=== PATIENT | male | born 1970 | race African-American/Black ===

== ENCOUNTER 2022-10-22 15:52 | Inpatient (IN) | payer OTHER ==
[2022-10-22 16:28] VITALS: BMI 33.6
[2022-10-22] MEDS ORDERED: DICYCLOMINE HCL 10 MG CAPSULE PO PRN (17:34)
[2022-10-22] MEDS ORDERED: IBUPROFEN 600 MG TABLET (FP) PO PRN (17:34)
[2022-10-22] MEDS ORDERED: hydrOXYzine PAMOATE 25 MG CAPSULE (FP) PO PRN (17:34)
[2022-10-22] MEDS ORDERED: ONDANSETRON *ODT* 4 MG TABLET SL PRN (17:34)
[2022-10-22] MEDS ORDERED: BISMUTH SUBSALICYLATE 524 MG/30 ML PO PRN (17:34)
[2022-10-22] MEDS ORDERED: chlordiazePOXIDE HCL 25 MG CAPSULE PO PRN (17:34)
[2022-10-22] MEDS ORDERED: POLYETHYLENE GLYCOL (HEALTHYLAX) 3350 17 GM PACKET PO PRN (17:34)
[2022-10-22] MEDS ORDERED: MAG HYDROX/AL HYDROX/SIMETH 30 ML UNIT-DOSE CUP PO PRN (17:34)
[2022-10-22] MEDS ORDERED: IBUPROFEN 400 MG TABLET (FP) PO PRN (17:34)
[2022-10-22] MEDS ORDERED: LOPERAMIDE HCL 2 MG CAPSULE PO PRN (17:34)
[2022-10-22] MEDS ORDERED: METHOCARBAMOL 500 MG TABLET PO PRN (17:34)
[2022-10-22] MEDS ORDERED: BENZOCAINE/MENTHOL (CHLORASEPTIC ) LOZENGE MM PRN (17:34)
[2022-10-22] MEDS ORDERED: ACETAMINOPHEN 325 MG TABLET (FP) PO PRN ×2 (17:34)
[2022-10-22] MEDS ORDERED: MAGNESIUM HYDROX 2400MG/30ML ORAL SUSPENSION 30 ML CUP PO PRN (17:34)
[2022-10-22] MEDS ORDERED: NICOTINE 10 MG CARTRIDGE (INHALER) IH PRN (17:34)
[2022-10-22] MEDS ORDERED: NICOTINE POLACRILEX 2 MG GUM BUC PRN (17:34)
[2022-10-22] MEDS ORDERED: NALOXONE HCL (KLOXXADO) 8 MG SPRAY NS PRN (17:34)
[2022-10-22] MEDS ORDERED: METHOCARBAMOL 500 MG TABLET ONE (18:11)
[2022-10-22] MEDS: CLOTRIMAZOLE 1% CREAM TP SCH (22:55)
[2022-10-22] MEDS: MELATONIN 5 MG TABLETS PO SCH (22:55)
[2022-10-22] MEDS: THIAMINE HCL 100 MG TABLET (FP) PO SCH (22:55)
[2022-10-22] MEDS: chlordiazePOXIDE HCL 25 MG CAPSULE PO SCH (23:02)
[2022-10-23] MEDS: chlordiazePOXIDE HCL 25 MG CAPSULE PO SCH ×4 (05:35→22:09)
[2022-10-23] MEDS: PRENATAL VITAMINS W/ FOLIC ACID TABLET (FP) PO SCH (10:23)
[2022-10-23] MEDS: CLOTRIMAZOLE 1% CREAM TP SCH ×2 (10:23→22:11)
[2022-10-23] MEDS: THIAMINE HCL 100 MG TABLET (FP) PO SCH (22:09)
[2022-10-23] MEDS: MELATONIN 5 MG TABLETS PO SCH (22:09)
[2022-10-24] MEDS: chlordiazePOXIDE HCL 25 MG CAPSULE PO SCH ×4 (05:32→22:49)
[2022-10-24] MEDS: PRENATAL VITAMINS W/ FOLIC ACID TABLET (FP) PO SCH (10:21)
[2022-10-24] MEDS: CLOTRIMAZOLE 1% CREAM TP SCH ×2 (10:22→22:49)
[2022-10-24 12:43] LABS: HEMATOCRIT 38.4 % (35.4-49); MCH 22.6 pg (25.7-33.7); MCHC 31.2 g/dl (32.0-35.9); MEAN CELL VOLUME 72.5 fl (80-96); MEAN PLT VOLUME 8.6 fl (7.5-11.1); PLATELET COUNT 284 10^3/uL (134-434); RDW 14.8 % (11.9-15.9); WHITE BLOOD COUNT 6.3 K/mm3 (4.0-10.0)
[2022-10-24 12:50] LABS: CREATININE 0.9 mg/dL (0.55-1.3)
[2022-10-24 12:51] LABS: BILIRUBIN,TOTAL 0.2 mg/dL (0.2-1)
[2022-10-24 12:53] LABS: BLOOD UREA NITROGEN 12.3 mg/dL (7-18); CALCIUM 8.4 mg/dL (8.5-10.1)
[2022-10-24] MEDS: traZODone HCL 50 MG TABLET (FP) PO SCH (22:50)
[2022-10-24] MEDS: THIAMINE HCL 100 MG TABLET (FP) PO SCH (22:50)
[2022-10-25] MEDS ORDERED: chlordiazePOXIDE HCL 10 MG CAPSULE PO PRN
[2022-10-25] MEDS: chlordiazePOXIDE HCL 10 MG CAPSULE PO SCH ×4 (05:23→22:38)
[2022-10-25] MEDS ORDERED: HALOPERIDOL 5 MG TABLET PO SCH (10:00)
[2022-10-25] MEDS ORDERED: BENZTROPINE MESYLATE 0.5 MG TABLET (FP) PO SCH (10:00)
[2022-10-25] MEDS: PRENATAL VITAMINS W/ FOLIC ACID TABLET (FP) PO SCH (10:41)
[2022-10-25] MEDS: CLOTRIMAZOLE 1% CREAM TP SCH ×2 (10:41→22:38)
[2022-10-25] MEDS ORDERED: ALBUTEROL SO4 HFA INHALER IH PRN (10:56)
[2022-10-25] MEDS: THIAMINE HCL 100 MG TABLET (FP) PO SCH (22:37)
[2022-10-25] MEDS: traZODone HCL 50 MG TABLET (FP) PO SCH (22:37)
[2022-10-26] MEDS: chlordiazePOXIDE HCL 10 MG CAPSULE PO SCH ×2 (05:43→17:31)
[2022-10-26] MEDS: CLOTRIMAZOLE 1% CREAM TP SCH ×2 (10:27→22:15)
[2022-10-26] MEDS: PRENATAL VITAMINS W/ FOLIC ACID TABLET (FP) PO SCH (10:27)
[2022-10-26] MEDS: THIAMINE HCL 100 MG TABLET (FP) PO SCH (22:15)
[2022-10-26] MEDS: traZODone HCL 50 MG TABLET (FP) PO SCH (22:15)
[2022-10-27] MEDS ORDERED: chlordiazePOXIDE HCL 10 MG CAPSULE PO ONE (05:00)
[2022-10-27 09:31] VITALS: BP 130/85; PULSE 81; RESP 17; TEMP 97.7
[2022-10-27] MEDS: PRENATAL VITAMINS W/ FOLIC ACID TABLET (FP) PO SCH (10:00)
[2022-10-27] MEDS: CLOTRIMAZOLE 1% CREAM TP SCH (10:05)
== END 2022-10-27 10:08 | disposition other institution (70) | DRG 774 ==
LOC: YASAS 15:52 → Y3N 19:37
PROVIDERS: ADMIT Allergy & Immunology; ATTEND Surgery
PROC: HZ2ZZZZ Detoxification Services for Substance Abuse Treatment (ICD-10-PCS; principal; 2022-10-22)
DX: F10.230 Alcohol dependence with withdrawal, uncomplicated (principal); F14.20 Cocaine dependence, uncomplicated; F17.210 Nicotine dependence, cigarettes, uncomplicated; F20.9 Schizophrenia, unspecified; G47.00 Insomnia, unspecified; J45.30 Mild persistent asthma, uncomplicated; B35.1 Tinea unguium; R73.9 Hyperglycemia, unspecified; Z86.19 Personal history of other infectious and parasitic diseases; Z59.00 Homelessness unspecified
CPT/HCPCS: 36415; 80053; 83036; 85027; 86593; 86780; 93005; 93010; C9803-CS; U0003; U0005

== ENCOUNTER 2022-10-27 10:14 | Inpatient (IN) | payer OTHER ==
[2022-10-27] MEDS ORDERED: hydrOXYzine PAMOATE 25 MG CAPSULE (FP) PO PRN (12:26)
[2022-10-27] MEDS ORDERED: P-EPHED 60MG/TRIPROLIDI 2.5MG TABLET PO PRN (12:26)
[2022-10-27] MEDS ORDERED: BENZOCAINE/MENTHOL (CHLORASEPTIC ) LOZENGE MM PRN (12:26)
[2022-10-27] MEDS ORDERED: POLYETHYLENE GLYCOL (HEALTHYLAX) 3350 17 GM PACKET PO PRN (12:26)
[2022-10-27] MEDS ORDERED: NICOTINE 14 MG/24 HOURS TOPICAL PATCH TD PRN (12:26)
[2022-10-27] MEDS ORDERED: ACETAMINOPHEN 325 MG TABLET (FP) PO PRN (12:26)
[2022-10-27] MEDS ORDERED: guaiFENesin 200 MG/10 ML 10 ML UNIT-DOSE CUPS PO PRN (12:26)
[2022-10-27] MEDS ORDERED: LOPERAMIDE HCL 2 MG CAPSULE PO PRN (12:26)
[2022-10-27] MEDS ORDERED: MAG HYDROX/AL HYDROX/SIMETH 30 ML UNIT-DOSE CUP PO PRN (12:26)
[2022-10-27] MEDS ORDERED: MAGNESIUM HYDROX 2400MG/30ML ORAL SUSPENSION 30 ML CUP PO PRN (12:26)
[2022-10-27] MEDS ORDERED: traZODone HCL 50 MG TABLET (FP) PO ONE (12:33)
[2022-10-27] MEDS: THIAMINE HCL 100 MG TABLET (FP) PO SCH (21:24)
[2022-10-27] MEDS: MELATONIN 5 MG TABLETS PO SCH (21:24)
[2022-10-27] MEDS: BENZTROPINE MESYLATE 0.5 MG TABLET (FP) PO SCH (21:25)
[2022-10-27] MEDS: HALOPERIDOL 5 MG TABLET PO SCH (21:26)
[2022-10-27] MEDS: traZODone HCL 50 MG TABLET (FP) PO SCH (21:26)
[2022-10-27] MEDS: CLOTRIMAZOLE 1% CREAM TP SCH (21:27)
[2022-10-28] MEDS: PRENATAL VITAMINS W/ FOLIC ACID TABLET (FP) PO SCH (09:55)
[2022-10-28] MEDS: CLOTRIMAZOLE 1% CREAM TP SCH ×2 (10:24→22:08)
[2022-10-28] MEDS: ALBUTEROL SO4 HFA INHALER IH PRN (12:53)
[2022-10-28] MEDS: LACTULOSE 20 GM/30 ML UDC (FOR ORAL USE ONLY) PO SCH ×2 (14:09→22:07)
[2022-10-28] MEDS: AMOX TR/POT CLAV 875MG/125MG TABLETS (FP) PO SCH (18:24)
[2022-10-28] MEDS: traZODone HCL 50 MG TABLET (FP) PO SCH (22:06)
[2022-10-28] MEDS: HALOPERIDOL 5 MG TABLET PO SCH (22:06)
[2022-10-28] MEDS: THIAMINE HCL 100 MG TABLET (FP) PO SCH (22:06)
[2022-10-28] MEDS: MELATONIN 5 MG TABLETS PO SCH (22:07)
[2022-10-28] MEDS: BENZTROPINE MESYLATE 0.5 MG TABLET (FP) PO SCH (22:07)
[2022-10-29] MEDS: LACTULOSE 20 GM/30 ML UDC (FOR ORAL USE ONLY) PO SCH ×3 (06:44→22:07)
[2022-10-29] MEDS: AMOX TR/POT CLAV 875MG/125MG TABLETS (FP) PO SCH ×2 (07:04→17:20)
[2022-10-29] MEDS: CLOTRIMAZOLE 1% CREAM TP SCH ×2 (09:48→22:07)
[2022-10-29] MEDS: NICOTINE 10 MG CARTRIDGE (INHALER) IH PRN (09:49)
[2022-10-29] MEDS: PRENATAL VITAMINS W/ FOLIC ACID TABLET (FP) PO SCH (09:49)
[2022-10-29] MEDS: MELATONIN 5 MG TABLETS PO SCH (22:06)
[2022-10-29] MEDS: BENZTROPINE MESYLATE 0.5 MG TABLET (FP) PO SCH (22:07)
[2022-10-29] MEDS: traZODone HCL 50 MG TABLET (FP) PO SCH (22:07)
[2022-10-29] MEDS: THIAMINE HCL 100 MG TABLET (FP) PO SCH (22:07)
[2022-10-29] MEDS: HALOPERIDOL 5 MG TABLET PO SCH (22:07)
[2022-10-29] MEDS: ALBUTEROL SO4 HFA INHALER IH PRN (22:09)
[2022-10-30] MEDS: LACTULOSE 20 GM/30 ML UDC (FOR ORAL USE ONLY) PO SCH ×3 (06:28→21:35)
[2022-10-30] MEDS: AMOX TR/POT CLAV 875MG/125MG TABLETS (FP) PO SCH ×2 (07:23→17:00)
[2022-10-30] MEDS: CLOTRIMAZOLE 1% CREAM TP SCH ×2 (10:43→21:35)
[2022-10-30] MEDS: PRENATAL VITAMINS W/ FOLIC ACID TABLET (FP) PO SCH (10:43)
[2022-10-30] MEDS: IBUPROFEN 400 MG TABLET (FP) PO PRN (11:22)
[2022-10-30] MEDS: MELATONIN 5 MG TABLETS PO SCH (21:35)
[2022-10-30] MEDS: HALOPERIDOL 5 MG TABLET PO SCH (21:35)
[2022-10-30] MEDS: THIAMINE HCL 100 MG TABLET (FP) PO SCH (21:35)
[2022-10-30] MEDS: BENZTROPINE MESYLATE 0.5 MG TABLET (FP) PO SCH (21:35)
[2022-10-30] MEDS: traZODone HCL 50 MG TABLET (FP) PO SCH (21:35)
[2022-10-30] MEDS: NICOTINE 10 MG CARTRIDGE (INHALER) IH PRN (21:47)
[2022-10-31] MEDS: LACTULOSE 20 GM/30 ML UDC (FOR ORAL USE ONLY) PO SCH ×3 (06:42→21:14)
[2022-10-31] MEDS: AMOX TR/POT CLAV 875MG/125MG TABLETS (FP) PO SCH ×2 (07:06→17:00)
[2022-10-31] MEDS: PRENATAL VITAMINS W/ FOLIC ACID TABLET (FP) PO SCH ×2 (10:21→10:27)
[2022-10-31] MEDS: CLOTRIMAZOLE 1% CREAM TP SCH ×2 (10:21→21:15)
[2022-10-31] MEDS: THIAMINE HCL 100 MG TABLET (FP) PO SCH (21:14)
[2022-10-31] MEDS: traZODone HCL 50 MG TABLET (FP) PO SCH (21:14)
[2022-10-31] MEDS: MELATONIN 5 MG TABLETS PO SCH (21:14)
[2022-10-31] MEDS: HALOPERIDOL 5 MG TABLET PO SCH (21:14)
[2022-10-31] MEDS: NICOTINE 10 MG CARTRIDGE (INHALER) IH PRN (21:14)
[2022-10-31] MEDS: BENZTROPINE MESYLATE 0.5 MG TABLET (FP) PO SCH (21:14)
[2022-11-01] MEDS: LACTULOSE 20 GM/30 ML UDC (FOR ORAL USE ONLY) PO SCH ×3 (06:36→21:28)
[2022-11-01] MEDS: PRENATAL VITAMINS W/ FOLIC ACID TABLET (FP) PO SCH (10:39)
[2022-11-01] MEDS: AMOX TR/POT CLAV 875MG/125MG TABLETS (FP) PO SCH ×2 (10:39→17:12)
[2022-11-01] MEDS: CLOTRIMAZOLE 1% CREAM TP SCH ×2 (10:39→21:29)
[2022-11-01] MEDS: THIAMINE HCL 100 MG TABLET (FP) PO SCH (21:28)
[2022-11-01] MEDS: traZODone HCL 50 MG TABLET (FP) PO SCH (21:28)
[2022-11-01] MEDS: MELATONIN 5 MG TABLETS PO SCH (21:28)
[2022-11-01] MEDS: BENZTROPINE MESYLATE 0.5 MG TABLET (FP) PO SCH (21:28)
[2022-11-01] MEDS: HALOPERIDOL 5 MG TABLET PO SCH (21:28)
[2022-11-01] MEDS: NICOTINE 10 MG CARTRIDGE (INHALER) IH PRN (22:48)
[2022-11-02] MEDS: LACTULOSE 20 GM/30 ML UDC (FOR ORAL USE ONLY) PO SCH ×3 (06:07→21:13)
[2022-11-02] MEDS: AMOX TR/POT CLAV 875MG/125MG TABLETS (FP) PO SCH ×2 (07:16→16:49)
[2022-11-02] MEDS: PRENATAL VITAMINS W/ FOLIC ACID TABLET (FP) PO SCH (09:53)
[2022-11-02] MEDS: CLOTRIMAZOLE 1% CREAM TP SCH ×2 (09:53→21:14)
[2022-11-02] MEDS: NICOTINE 10 MG CARTRIDGE (INHALER) IH PRN (16:48)
[2022-11-02] MEDS: THIAMINE HCL 100 MG TABLET (FP) PO SCH (21:13)
[2022-11-02] MEDS: MELATONIN 5 MG TABLETS PO SCH (21:13)
[2022-11-02] MEDS: BENZTROPINE MESYLATE 0.5 MG TABLET (FP) PO SCH (21:14)
[2022-11-02] MEDS: traZODone HCL 50 MG TABLET (FP) PO SCH (21:14)
[2022-11-02] MEDS: HALOPERIDOL 5 MG TABLET PO SCH (21:14)
[2022-11-03] MEDS: LACTULOSE 20 GM/30 ML UDC (FOR ORAL USE ONLY) PO SCH ×3 (06:11→21:13)
[2022-11-03 06:53] VITALS: RESP 18
[2022-11-03] MEDS: AMOX TR/POT CLAV 875MG/125MG TABLETS (FP) PO SCH ×2 (07:26→18:11)
[2022-11-03] MEDS: PRENATAL VITAMINS W/ FOLIC ACID TABLET (FP) PO SCH (10:38)
[2022-11-03] MEDS: CLOTRIMAZOLE 1% CREAM TP SCH ×2 (10:38→21:14)
[2022-11-03] MEDS: NICOTINE 10 MG CARTRIDGE (INHALER) IH PRN ×2 (14:04→19:09)
[2022-11-03] MEDS: traZODone HCL 50 MG TABLET (FP) PO SCH (21:13)
[2022-11-03] MEDS: HALOPERIDOL 5 MG TABLET PO SCH (21:13)
[2022-11-03] MEDS: THIAMINE HCL 100 MG TABLET (FP) PO SCH (21:13)
[2022-11-03] MEDS: MELATONIN 5 MG TABLETS PO SCH (21:13)
[2022-11-03] MEDS: BENZTROPINE MESYLATE 1 MG TABLET PO SCH (21:14)
[2022-11-04] MEDS: LACTULOSE 20 GM/30 ML UDC (FOR ORAL USE ONLY) PO SCH ×3 (06:07→21:41)
[2022-11-04] MEDS: CLOTRIMAZOLE 1% CREAM TP SCH ×2 (10:22→21:27)
[2022-11-04] MEDS: PRENATAL VITAMINS W/ FOLIC ACID TABLET (FP) PO SCH (10:23)
[2022-11-04] MEDS: NICOTINE 10 MG CARTRIDGE (INHALER) IH PRN ×2 (12:06→16:23)
[2022-11-04] MEDS: MELATONIN 5 MG TABLETS PO SCH (21:27)
[2022-11-04] MEDS: traZODone HCL 50 MG TABLET (FP) PO SCH (21:27)
[2022-11-04] MEDS: BENZTROPINE MESYLATE 1 MG TABLET PO SCH (21:27)
[2022-11-04] MEDS: HALOPERIDOL 5 MG TABLET PO SCH (21:27)
[2022-11-04] MEDS: THIAMINE HCL 100 MG TABLET (FP) PO SCH (21:27)
[2022-11-05] MEDS: LACTULOSE 20 GM/30 ML UDC (FOR ORAL USE ONLY) PO SCH ×3 (05:46→21:17)
[2022-11-05] MEDS: CLOTRIMAZOLE 1% CREAM TP SCH ×2 (10:06→21:18)
[2022-11-05] MEDS: PRENATAL VITAMINS W/ FOLIC ACID TABLET (FP) PO SCH (10:06)
[2022-11-05] MEDS: NICOTINE 10 MG CARTRIDGE (INHALER) IH PRN ×2 (13:56→21:46)
[2022-11-05] MEDS: THIAMINE HCL 100 MG TABLET (FP) PO SCH (21:17)
[2022-11-05] MEDS: MELATONIN 5 MG TABLETS PO SCH (21:17)
[2022-11-05] MEDS: traZODone HCL 50 MG TABLET (FP) PO SCH (21:17)
[2022-11-05] MEDS: HALOPERIDOL 5 MG TABLET PO SCH (21:17)
[2022-11-05] MEDS: BENZTROPINE MESYLATE 1 MG TABLET PO SCH (21:17)
[2022-11-06] MEDS: LACTULOSE 20 GM/30 ML UDC (FOR ORAL USE ONLY) PO SCH ×3 (06:33→21:32)
[2022-11-06] MEDS: PRENATAL VITAMINS W/ FOLIC ACID TABLET (FP) PO SCH (10:11)
[2022-11-06] MEDS: CLOTRIMAZOLE 1% CREAM TP SCH ×2 (10:11→21:33)
[2022-11-06] MEDS: IBUPROFEN 400 MG TABLET (FP) PO PRN (10:12)
[2022-11-06] MEDS: NICOTINE 10 MG CARTRIDGE (INHALER) IH PRN ×2 (13:54→17:00)
[2022-11-06] MEDS: BENZTROPINE MESYLATE 1 MG TABLET PO SCH (21:32)
[2022-11-06] MEDS: HALOPERIDOL 5 MG TABLET PO SCH (21:32)
[2022-11-06] MEDS: traZODone HCL 50 MG TABLET (FP) PO SCH (21:32)
[2022-11-06] MEDS: MELATONIN 5 MG TABLETS PO SCH (21:32)
[2022-11-06] MEDS: THIAMINE HCL 100 MG TABLET (FP) PO SCH (21:32)
[2022-11-07] MEDS: LACTULOSE 20 GM/30 ML UDC (FOR ORAL USE ONLY) PO SCH ×3 (06:27→21:38)
[2022-11-07] MEDS: IBUPROFEN 400 MG TABLET (FP) PO PRN ×2 (06:27→14:37)
[2022-11-07] MEDS: CLOTRIMAZOLE 1% CREAM TP SCH ×2 (10:44→21:39)
[2022-11-07] MEDS: PRENATAL VITAMINS W/ FOLIC ACID TABLET (FP) PO SCH (10:45)
[2022-11-07] MEDS: HALOPERIDOL 5 MG TABLET PO SCH (21:38)
[2022-11-07] MEDS: MELATONIN 5 MG TABLETS PO SCH (21:38)
[2022-11-07] MEDS: traZODone HCL 50 MG TABLET (FP) PO SCH (21:38)
[2022-11-07] MEDS: BENZTROPINE MESYLATE 1 MG TABLET PO SCH (21:38)
[2022-11-07] MEDS: THIAMINE HCL 100 MG TABLET (FP) PO SCH (21:38)
[2022-11-07] MEDS: NICOTINE 10 MG CARTRIDGE (INHALER) IH PRN (22:06)
[2022-11-08] MEDS: IBUPROFEN 400 MG TABLET (FP) PO PRN (06:08)
[2022-11-08] MEDS: LACTULOSE 20 GM/30 ML UDC (FOR ORAL USE ONLY) PO SCH ×3 (06:08→21:16)
[2022-11-08] MEDS: CLOTRIMAZOLE 1% CREAM TP SCH ×2 (10:52→21:17)
[2022-11-08] MEDS: PRENATAL VITAMINS W/ FOLIC ACID TABLET (FP) PO SCH (10:53)
[2022-11-08] MEDS: NICOTINE 10 MG CARTRIDGE (INHALER) IH PRN (18:29)
[2022-11-08] MEDS: MELATONIN 5 MG TABLETS PO SCH (21:16)
[2022-11-08] MEDS: THIAMINE HCL 100 MG TABLET (FP) PO SCH (21:16)
[2022-11-08] MEDS: HALOPERIDOL 5 MG TABLET PO SCH (21:17)
[2022-11-08] MEDS: traZODone HCL 50 MG TABLET (FP) PO SCH (21:17)
[2022-11-08] MEDS: BENZTROPINE MESYLATE 1 MG TABLET PO SCH (21:17)
[2022-11-09] MEDS: LACTULOSE 20 GM/30 ML UDC (FOR ORAL USE ONLY) PO SCH ×3 (06:02→21:29)
[2022-11-09] MEDS: PRENATAL VITAMINS W/ FOLIC ACID TABLET (FP) PO SCH (11:30)
[2022-11-09] MEDS: CLOTRIMAZOLE 1% CREAM TP SCH ×2 (11:30→21:30)
[2022-11-09] MEDS: traZODone HCL 50 MG TABLET (FP) PO SCH (21:29)
[2022-11-09] MEDS: MELATONIN 5 MG TABLETS PO SCH (21:29)
[2022-11-09] MEDS: HALOPERIDOL 5 MG TABLET PO SCH (21:29)
[2022-11-09] MEDS: THIAMINE HCL 100 MG TABLET (FP) PO SCH (21:29)
[2022-11-09] MEDS: BENZTROPINE MESYLATE 1 MG TABLET PO SCH (21:30)
[2022-11-10] MEDS: LACTULOSE 20 GM/30 ML UDC (FOR ORAL USE ONLY) PO SCH ×3 (06:43→21:19)
[2022-11-10] MEDS: PRENATAL VITAMINS W/ FOLIC ACID TABLET (FP) PO SCH (10:48)
[2022-11-10] MEDS: CLOTRIMAZOLE 1% CREAM TP SCH ×2 (10:48→21:20)
[2022-11-10] MEDS: NICOTINE 10 MG CARTRIDGE (INHALER) IH PRN (15:49)
[2022-11-10] MEDS: MELATONIN 5 MG TABLETS PO SCH (21:19)
[2022-11-10] MEDS: traZODone HCL 50 MG TABLET (FP) PO SCH (21:19)
[2022-11-10] MEDS: HALOPERIDOL 5 MG TABLET PO SCH (21:19)
[2022-11-10] MEDS: THIAMINE HCL 100 MG TABLET (FP) PO SCH (21:19)
[2022-11-10] MEDS: BENZTROPINE MESYLATE 1 MG TABLET PO SCH (21:20)
[2022-11-11] MEDS: LACTULOSE 20 GM/30 ML UDC (FOR ORAL USE ONLY) PO SCH ×3 (06:53→21:09)
[2022-11-11] MEDS: IBUPROFEN 400 MG TABLET (FP) PO PRN (06:54)
[2022-11-11] MEDS: CLOTRIMAZOLE 1% CREAM TP SCH ×2 (10:22→21:10)
[2022-11-11] MEDS: PRENATAL VITAMINS W/ FOLIC ACID TABLET (FP) PO SCH (10:22)
[2022-11-11] MEDS: MELATONIN 5 MG TABLETS PO SCH (21:09)
[2022-11-11] MEDS: THIAMINE HCL 100 MG TABLET (FP) PO SCH (21:09)
[2022-11-11] MEDS: traZODone HCL 50 MG TABLET (FP) PO SCH (21:09)
[2022-11-11] MEDS: BENZTROPINE MESYLATE 1 MG TABLET PO SCH (21:09)
[2022-11-11] MEDS: HALOPERIDOL 5 MG TABLET PO SCH (21:09)
[2022-11-11] MEDS: NICOTINE 10 MG CARTRIDGE (INHALER) IH PRN (23:32)
[2022-11-12] MEDS: LACTULOSE 20 GM/30 ML UDC (FOR ORAL USE ONLY) PO SCH ×3 (06:34→21:09)
[2022-11-12] MEDS: IBUPROFEN 400 MG TABLET (FP) PO PRN (06:35)
[2022-11-12] MEDS: CLOTRIMAZOLE 1% CREAM TP SCH ×2 (10:09→21:10)
[2022-11-12] MEDS: PRENATAL VITAMINS W/ FOLIC ACID TABLET (FP) PO SCH (10:09)
[2022-11-12] MEDS: THIAMINE HCL 100 MG TABLET (FP) PO SCH (21:09)
[2022-11-12] MEDS: BENZTROPINE MESYLATE 1 MG TABLET PO SCH (21:09)
[2022-11-12] MEDS: traZODone HCL 50 MG TABLET (FP) PO SCH (21:10)
[2022-11-12] MEDS: MELATONIN 5 MG TABLETS PO SCH (21:10)
[2022-11-12] MEDS: HALOPERIDOL 5 MG TABLET PO SCH (21:10)
[2022-11-12] MEDS: NICOTINE 10 MG CARTRIDGE (INHALER) IH PRN (22:54)
[2022-11-13] MEDS: LACTULOSE 20 GM/30 ML UDC (FOR ORAL USE ONLY) PO SCH ×3 (06:28→21:30)
[2022-11-13] MEDS: PRENATAL VITAMINS W/ FOLIC ACID TABLET (FP) PO SCH (10:14)
[2022-11-13] MEDS: CLOTRIMAZOLE 1% CREAM TP SCH ×2 (10:14→21:31)
[2022-11-13] MEDS: NICOTINE 10 MG CARTRIDGE (INHALER) IH PRN ×2 (13:04→16:38)
[2022-11-13] MEDS: THIAMINE HCL 100 MG TABLET (FP) PO SCH (21:30)
[2022-11-13] MEDS: HALOPERIDOL 5 MG TABLET PO SCH (21:30)
[2022-11-13] MEDS: MELATONIN 5 MG TABLETS PO SCH (21:30)
[2022-11-13] MEDS: traZODone HCL 50 MG TABLET (FP) PO SCH (21:31)
[2022-11-13] MEDS: BENZTROPINE MESYLATE 1 MG TABLET PO SCH (21:31)
[2022-11-14] MEDS: LACTULOSE 20 GM/30 ML UDC (FOR ORAL USE ONLY) PO SCH (06:26)
[2022-11-14 07:19] VITALS: BP 122/78; PULSE 62; TEMP 98
[2022-11-14] MEDS: PRENATAL VITAMINS W/ FOLIC ACID TABLET (FP) PO SCH (10:19)
[2022-11-14] MEDS: CLOTRIMAZOLE 1% CREAM TP SCH (10:19)
== END 2022-11-14 10:58 | disposition home or self-care (01) | DRG 772 ==
LOC: YASAS 10:14 → Y3W 10:15
PROVIDERS: ADMIT Allergy & Immunology; ATTEND Allergy & Immunology
PROC: HZ42ZZZ Group Counseling for Substance Abuse Treatment, Cognitive-Behavioral (ICD-10-PCS; principal; 2022-10-27)
DX: F10.20 Alcohol dependence, uncomplicated (principal); F14.20 Cocaine dependence, uncomplicated; F12.20 Cannabis dependence, uncomplicated; F17.210 Nicotine dependence, cigarettes, uncomplicated; F20.9 Schizophrenia, unspecified; F43.21 Adjustment disorder with depressed mood; E72.20 Disorder of urea cycle metabolism, unspecified; J45.909 Unspecified asthma, uncomplicated; B35.1 Tinea unguium; Z59.02 Unsheltered homelessness; Z99.89 Dependence on other enabling machines and devices
CPT/HCPCS: 36415; 71046-TC-FY; 82140; 82962; 86803; 93005; 93010